=== PATIENT | male | born 1980 | race Caucasian/White ===

== ENCOUNTER 2018-09-27 14:00 | Emergency (ER) | payer BC ==
[2018-09-27 14:05] VITALS: PULSE 102; TEMP 98.2; BMI 29.4
--- NOTE | 2018-09-27 14:21 | PDOC ---
Attending Attestation - Resident Resident Name: AniyahEileen - ED Attending Attestation I have performed the following: I have examined & evaluated the patient, The case was reviewed & discussed with the resident, I agree w/resident's findings & plan, Exceptions are as noted - HPI HPI: 09/27/18 14:30 38y M no pmhx presents with a facial infection. Pt states that approx 2 weeks, he started to have a pimple on his L cheek. He squeezed it and dug out some ingrown hairs. A few days later, it became more red. he went to urgent care and was started on doxycycline for a possibel cellulitis. pt denies any fever/chills , trouble chewing, mouth pain, neck pain. he went to a DIABETES EDUCATOR who referred him to the ER for further evaluation. pt states that he has been putting a Kiehl's topical facial cleanser. No prior history of infections. no bad habits. doesnt use steroids. On exam: GENERAL: eris cute distress Throat: oral mucosa moist, good dentition, no signs of dental or intraoral abcess, posterior pharynx patent and symmetric, tongue normal HEAD/FACE: mild erythema on left cheek with umbilication without active discharge, no significant warmth, induration, mildly ttp, no streaking. no redeness/swelling/tenderness on neck or mastoid process CARD: rrr, no mrg PULM: CTA b/l suspect very mild cellulitis vs inflammation - will obtain blood work - no systemic sypmtoms will ck basic labs, if normal will give alterative abx suspect his routine of using the facial cleanser and shavnig may be delaying healing process - will have him stop using any cleansers beside water and have him minimize shaving to reduce irritation to the healing area - Physicial Exam PE: 10/03/18 00:00 see above - Medical Decision Making 10/03/18 00:00 see above
[2018-09-27 15:00] LABS: EOS % 2.6 % (0-4.5); HEMATOCRIT 54.9 % (35.4-49); HEMOGLOBIN 17.8 GM/dl (11.7-16.9); LYMPH % 35.3 % (8-40); MCH 31.2 pg (25.7-33.7); MCHC 32.4 g/dl (32.0-35.9); MEAN CELL VOLUME 96.2 fl (80-96); MEAN PLT VOLUME 9.5 fl (7.5-11.1); MONO % 10.1 % (3.8-10.2); PLATELET COUNT 169 K/MM3 (134-434); RDW 11.9 % (11.9-15.9)
[2018-09-27 15:08] LABS: ALBUMIN 4.5 g/dl (3.4-5.0); ALK PHOS 52 U/L (45-117); ANION GAP 8 MMOL/L (8-16); BLOOD UREA NITROGEN 12 mg/dl (7-18); CALCIUM 9.7 mg/dl (8.5-10); CHLORIDE 97 mmol/L (98-107); CO2 31 mmol/L (21-32); GLUCOSE,RANDOM 81 mg/dl (74-106); POTASSIUM 4.7 mmol/L (3.5-5.1); SGOT/AST 94 U/L (15-37); SGPT/ALT 47 U/L (13-61); SODIUM 136 mmol/L (136-145)
--- NOTE | 2018-09-27 15:14 | PDOC ---
History of Present Illness - General Chief Complaint: Redness To Affected Area Stated Complaint: REDNESS, SWELLING TO LEFT JAW Time Seen by Provider: 09/27/18 14:18 History Source: Patient Exam Limitations: No Limitations - History of Present Illness Initial Comments: 09/27/18 15:09 Pt is a 38yo M with no significant PMH presenting to ED for L sided facial cellulitis. Pt states that around 17 days ago he noticed the L side of his face breaking out, turning red and getting worse. He went to urgent care 10 days ago and was given doxycycline and dermatology f/u. Pt says that he finished the course yesterday and went to a radioactivity technician today ([employer]) who said to come to the emergency room. Pt states that this morning he pulled out "40-50 hairs" which left an open pore. Other than feeling weak, pt denies fevers, chills, oral lesions, drainage, headache, congestion, throat pain, abdominal pain, n/v/ d. Pt applies "all natural" facial cleanser and lotion to the skin and continues to shave. PMD: none PSH: none Meds: doxycycline Allergies: PCN Social: occasional alcohol use Past History - Past Medical History Allergies/Adverse Reactions: Allergies Allergy/AdvReac Type Severity Reaction Status Date / Time Penicillins Allergy Mild Verified 09/27/18 14:00 Home Medications: Ambulatory Orders Alprazolam [Xanax] 2 mg PO HS 09/27/18 Clindamycin Topical Solution [Cleocin 1% Topical Solution -] 5 ml TP DAILY #1 bottle 09/27/18 Finasteride 1 mg PO DAILY 09/27/18 COPD: No Psychiatric Problems: Yes (INSOMNIA) - Surgical History Abdominal Surgery: Yes (SPLEEN REPAIR) - Suicide/Smoking/Psychosocial Hx Smoking History: Current some day smoker Have you smoked in the past 12 months: Yes Number of Cigarettes Smoked Daily: 4 Information on smoking cessation initiated: Yes 'Breaking Loose' booklet given: 12/16/17 Hx Alcohol Use: (occasional) Drug/Substance Use Hx: No Substance Use Type: Alcohol Review of Systems - Review of Systems Constitutional: Yes: Weakness. No: Chills, Fever HEENTM: Yes: See HPI. No: Nose Pain, Throat Pain, Throat Swelling, Mouth Pain, Difficulty Swallowing Respiratory: No: Cough, Shortness of Breath Cardiac (ROS): No: Chest Pain ABD/GI: No: Symptoms Reported : No: Symptoms Reported Musculoskeletal: No: Symptoms Reported Integumentary: Yes: See HPI Neurological: No: Symptoms reported *Physical Exam - Vital Signs Last Vital Signs Temp Pulse Resp BP Pulse Ox 98.2 F 102 H 20 141/97 100 09/27/18 14:00 09/27/18 14:00 09/27/18 14:00 09/27/18 14:00 09/27/18 14:00 - Physical Exam General Appearance: Yes: Nourished, Appropriately Dressed. No: Apparent Distress HEENT: positive: EOMI, CARIN, Pharynx Normal, Other (normal oral mucosa). negative: Pharyngeal Erythema Neck: positive: Trachea midline, Supple. negative: Lymphadenopathy (R), Lymphadenopathy (L) Respiratory/Chest: positive: Lungs Clear, Normal Breath Sounds Cardiovascular: positive: Regular Rhythm, Regular Rate, S1, S2. negative: Edema , Murmur Vascular Pulses: Carotid (R): 2+, Carotid (L): 2+ Gastrointestinal/Abdominal: positive: Normal Bowel Sounds, Soft. negative: Tender Musculoskeletal: negative: CVA Tenderness Extremity: positive: Normal Capillary Refill. negative: Pedal Edema, Swelling Integumentary: positive: Normal Color, Dry, Warm, Other (L side of face slightly erythematous with open pores, no fluctuance or induration, not warm) Neurologic: positive: braille typist II-XII NML intact, Fully Oriented, Alert, Normal Mood/ Affect, Normal Response, Motor Strength 5/5 ED Treatment Course - LABORATORY CBC & Chemistry Diagram: 09/27/18 14:30 09/27/18 14:30 - ADDITIONAL ORDERS Additional order review: 09/27/18 14:30 RBC 5.70 H MCV 96.2 H MCHC 32.4 RDW 11.9 MPV 9.5 Neutrophils % 51.0 Lymphocytes % 35.3 Monocytes % 10.1 Eosinophils % 2.6 Basophils % 1.0 Medical Decision Making - Medical Decision Making 09/27/18 15:12 Pt is a 38yo M with no significant PMH presenting to ED for L sided facial cellulitis. Pt states that around 17 days ago he noticed the L side of his face breaking out, turning red and getting worse. He went to urgent care 10 days ago and was given doxycycline and dermatology f/u. Pt says that he finished the course yesterday and went to a radioactivity technician today ([employer]) who said to come to the emergency room. Pt states that this morning he pulled out "40-50 hairs" which left an open pore. Other than feeling weak, pt denies fevers, chills, oral lesions, drainage, headache, congestion, throat pain, abdominal pain, n/v/ d. Pt applies "all natural" facial cleanser and lotion to the skin and continues to shave. Vitals: slight tachycadia PE: L sided facial erythema, no masses, no fluctuance, no indurtion, not ttp. ddx includes but not limited to cellulitis, erysepelas, ingrown hairs, acne cellulitis looks like it is clearing up. Pt continues to apply topical creams/ cleansers and shaves. May be preventing proper healing. -labs to assess white count labs wnl. pt does not need further abx treatment however will prescribe clindamycin topical solution. Pt given return precautions and referral to derm. stable for dc home *DC/Admit/Observation/Transfer Diagnosis at time of Disposition: Skin infection - Discharge Dispostion Disposition: HOME Condition at time of disposition: Good Decision to Admit order: No - Prescriptions Prescriptions: Clindamycin Topical Solution [Cleocin 1% Topical Solution -] 5 ml TP DAILY #1 bottle - Referrals Referrals: Darlene Hernandez MD [Staff Physician] - - Patient Instructions Printed Discharge Instructions: DI for Cellulitis -- Adult Additional Instructions: You were seen in the emergency room today for cellulitis on the face. It looks like it is healing well. The blood work was all normal. Please only use soap and water on the face and try not to apply any lotion so that the skin can heal. You can continue to place a covering on top if you want to. I would also recommend not to shave until the skin is healed as well. Try not to pick at any scabs that form. I also recommend seeing a radioactivity technician as well. You can see Dr. Hernandez. Contact information is provided. A prescription for a topical antibiotic was sent to your pharmacy. Please take as directed. Come back to the emergency room if swelling gets worse, you start developing acne on top, you have fevers, you are unable to move your mouth, the infection spreads or if any new concerning symptom develops. Thank you - Post Discharge Activity
[2018-09-27 16:47] VITALS: BP 136/91
== END 2018-09-27 16:05 | disposition home or self-care (01) ==
LOC: FER 14:00
DX: L03.211 Cellulitis of face (principal)
CPT/HCPCS: 36415; 80053; 83605; 85025; 87040; 87186; 99284-25

== ENCOUNTER 2018-09-28 17:49 | Emergency (ER) | payer BC ==
[2018-09-28] MEDS ORDERED: SODIUM CHLORIDE 0.9% 500 ML INFUS.BAG IV ONE (17:54)
--- NOTE | 2018-09-28 17:55 | PDOC ---
History of Present Illness - General Chief Complaint: Revisit, Lab Variance Stated Complaint: REVISIT, REDNESS TO LEFT JAW, LAB VARIANCE Time Seen by Provider: 09/28/18 17:51 History Source: Patient Exam Limitations: No Limitations - History of Present Illness Initial Comments: 09/28/18 18:41 Linn is a 38yo M with no significant PMH presenting to ED for L sided facial cellulitis, now scarring and improved from yesterday, called back for abnormal microbio results +blood culture. He was seen yesterday in the ED, where one set of blood culture positive for gram positive cocci in pairs/chains. At that time he was rxd clinda ointment, which he has been applying. Pt states that around 3 weeks ago, he noticed the L side of his face breaking out in redness. He went to urgent care 10 days ago and was given doxycycline and subsequently eval by dermatology, who had referred him to the ED yesterday. He completed the full course of doxycycline x 10 days. Of note yesterday, Pt states that this morning he pulled out "40-50 hairs" from his left face/cheek which left an open pore. He admits to shaving his face and applying cream. Denies similar history of cellulitis/abscess. He also complains of generalized weakness and lethargy, pt denies fevers, chills, oral lesions, drainage, headache, congestion, throat pain, abdominal pain, n/v/d. no recent travel or hiking in the [place]. admits to healthy diet, uses protein powder for bulking x many years, no issues previously. denies etoh excessive drinking or tylenol use. PMD: none PSH: none Meds: clinda ointment Allergies: PCN Social: occasional alcohol use; no tobacco use. Review of systems Constitutional: no fevers or chills. +generalized weakness. HEENT: no headache or dizziness. No congestion. No visual/hearing disturbances. CVS: no cp or syncope. Resp: no sob. No cough. Gastrointestinal: no abdominal pain, nausea or vomiting. Genitourinary: no urinary sx, hematuria. MUSCULOSKELETAL: No joint pain and swelling. No neck or back pain. SKIN: no discharge, no rash. +healing wound to face. Hematologic: no easy bruising/bleeding. NEUROLOGIC: No headache, dizziness, LOC or altered mental status. No weakness, numbness or tingling. Allergic/Immunologic: no allergies All other systems reviewed and negative, or as documented in HPI. Physical exam: General: Well appearing, awake and alert, NAD. HEENT: NCAT, PERRL, EOMI, clear conjunctiva, anicteric, moist mucus membranes, clear oropharynx, no oral lesions.. Left jaw/lower face with healed scars and granulated tissue over the pore. +kaye, no purulence or erythema, or warmth. Neck: neck supple, FROM Resp: CTAB, normal and even respirations, no respiratory distress CVS: RRR, no murmurs, 2+ peripheral pulses throughout, no peripheral edema Abdomen: soft, NTND, no peritoneal signs. Back: nontender, normal inspection and ROM MSK: no edema, MODI x4, ROM intact. No clubbing or cyanosis. normal bulk and tone. Neuro: alert, no focal neuro deficits. CN II-XII grossly intact. Skin: warm and well perfused, cap refill <2 sec, normal color, no rash. No warmth or erythema or fluctuance/firmness to his left face, nontender no Jaundice. 09/28/18 18:47 09/28/18 19:51 Past History - Past Medical History Allergies/Adverse Reactions: Allergies Allergy/AdvReac Type Severity Reaction Status Date / Time Penicillins Allergy Mild Verified 09/28/18 17:50 Home Medications: Ambulatory Orders Alprazolam [Xanax] 2 mg PO HS 09/27/18 Clindamycin Topical Solution [Cleocin 1% Topical Solution -] 5 ml TP DAILY #1 bottle 09/27/18 Finasteride 1 mg PO DAILY 09/27/18 COPD: No Psychiatric Problems: Yes (INSOMNIA) - Surgical History Abdominal Surgery: Yes (SPLEEN REPAIR) - Suicide/Smoking/Psychosocial Hx Smoking History: Current some day smoker Have you smoked in the past 12 months: Yes Number of Cigarettes Smoked Daily: 4 'Breaking Loose' booklet given: 12/16/17 Hx Alcohol Use: (occasional) Drug/Substance Use Hx: No Substance Use Type: Alcohol ED Treatment Course - LABORATORY CBC & Chemistry Diagram: 09/28/18 18:20 09/28/18 18:20 Medical Decision Making - Medical Decision Making 09/28/18 18:48'' hpi as documented VS reviewed, wnl no fever, nontoxic appearing, no systemic sx, normal mentation, repeat labs. prior reviewed from yesterday, hemoconcentrated, pt admits to mild dehydration and generalized fatigue x several weeks ddx facial abscess, cellulitis, bacteremia, nonseptic appearing, no abscess palpated, no erythema/s/s drainage or severe infection does not appear to be osteomyelitis, no jaw pain, no neuro changes repeat labs_normal wbc ct, +hemoconcentration. given IVF hydration +transaminitis noted, higher than previous. he has noted to have EtOH abuse in the past, last used 1 month ago and aware of liver function tests. acute transaminitis noted, pt denies etoh use between yesterday to today, no tylenol use or medications or over the counter meds/changes. uses protein powder, but has been used x many years since teen years. repeat Blood culture x2 drawn. prior one with one set +blood culture with staph species, likely contamination. CXR to eval for pna. he does have RUQ pain/right lower chest pain. RUQ sono to eval for liver/biliary structural abnormalities/inflammation. tick panel/ parasite/babesia smear, lyme titer and hepatitis panel sent to elucidate infectious etiology. s/o to Dr Leonardo pending reeval and ultimate dispo 09/28/18 18:50 09/28/18 19:03 09/28/18 19:49 *DC/Admit/Observation/Transfer Diagnosis at time of Disposition: Malaise and fatigue, Transaminitis - Discharge Dispostion Disposition: HOME Condition at time of disposition: Stable - Referrals Schedule a call back: call back Referrals: [facility] at [place] [Provider Group] Andrew Jimenez MD [Staff Physician] - - Patient Instructions Printed Discharge Instructions: Liver Function Tests Additional Instructions: Continue face cream as prescribed. On Sunday follow-up in the clinic listed under referrals. He will receive a phone call or you can make a phone call to confirm the time the clinic will follow-up on the blood tests which were discussed that were sent here from the emergency department Return to the emergency department immediately for any fever chills shaking any severe worsening abdominal pain or for any concerns otherwise follow-up in the clinic on Sunday. - Post Discharge Activity
[2018-09-28 18:04] VITALS: BP 126/87; PULSE 97; TEMP 98; BMI 29.4
[2018-09-28 18:31] LABS: BASO % 1.4 % (0-2.0); EOS % 3.1 % (0-4.5); HEMATOCRIT 54.6 % (35.4-49); HEMOGLOBIN 18.2 GM/dl (11.7-16.9); MCH 31.9 pg (25.7-33.7); MCHC 33.3 g/dl (32.0-35.9); MEAN CELL VOLUME 95.5 fl (80-96); MEAN PLT VOLUME 9.2 fl (7.5-11.1); MONO % 8.5 % (3.8-10.2); PLATELET COUNT 166 K/MM3 (134-434); RBC 5.71 M/mm3 (4.00-5.60); RDW 11.8 % (11.9-15.9); WHITE BLOOD COUNT 8.2 K/mm3 (4.0-10.8)
[2018-09-28 18:47] LABS: ALBUMIN 4.3 g/dl (3.4-5.0); ALK PHOS 62 U/L (45-117); ANION GAP 4 MMOL/L (8-16); BILIRUBIN,TOTAL 1.3 mg/dl (0.2-1); BLOOD UREA NITROGEN 19 mg/dl (7-18); CALCIUM 9.6 mg/dl (8.5-10); CHLORIDE 100 mmol/L (98-107); CO2 30 mmol/L (21-32); GLUCOSE,RANDOM 78 mg/dl (74-106); POTASSIUM 4.4 mmol/L (3.5-5.1); SGOT/AST 208 U/L (15-37); SGPT/ALT 110 U/L (13-61); SODIUM 134 mmol/L (136-145); TOT PROT 7.1 g/dl (6.4-8.2)
[2018-09-28 20:16] LABS: INR 1.06 (0.82-1.09); PROTHROMBIN TIME (PATIENT) 11.9 SEC (10.2-13.0)
--- NOTE | 2018-09-28 21:06 | PDOC ---
*Physical Exam - Vital Signs Last Vital Signs Temp Pulse Resp BP Pulse Ox 98 F 97 H 18 126/87 99 09/28/18 17:50 09/28/18 17:50 09/28/18 17:50 09/28/18 17:50 09/28/18 17:50 <Farzaneh White - Last Filed: 09/28/18 21:06> - Vital Signs Last Vital Signs Temp Pulse Resp BP Pulse Ox 98 F 97 H 18 126/87 99 09/28/18 17:50 09/28/18 17:50 09/28/18 17:50 09/28/18 17:50 09/28/18 17:50 <Nicola Leonardo - Last Filed: 09/29/18 06:48> ED Treatment Course - LABORATORY CBC & Chemistry Diagram: 09/28/18 18:20 09/28/18 18:20 - ADDITIONAL ORDERS Additional order review: Laboratory Results 09/28/18 09/28/18 20:00 18:20 PT with INR 11.9 INR 1.06 Sodium 134 L Potassium 4.4 Chloride 100 Carbon Dioxide 30 Anion Gap 4 L BUN 19 H Creatinine 1.0 Creat Clearance w eGFR 84.08 Random Glucose 78 Calcium 9.6 Total Bilirubin 1.3 H AST 208 H ALT 110 H Alkaline Phosphatase 62 D Total Protein 7.1 Albumin 4.3 09/28/18 18:20 RBC 5.71 H MCV 95.5 MCHC 33.3 RDW 11.8 L MPV 9.2 Neutrophils % 65.0 D Lymphocytes % 22.0 D Monocytes % 8.5 Eosinophils % 3.1 Basophils % 1.4 - RADIOLOGY Radiology Studies Ordered: 09/28/18 21:08 Findings: The study was technically difficult as the patient had eaten approximately 30 minutes prior to the study. There is extensive bowel gas. The pancreas was poorly visualized due to overlying bowel gas. The common bile duct measures 0.4 cm in diameter. Chest X-Ray Result: CHF - Medications Given in the ED: ED Medications Discontinued Medications Generic Name Dose Route Start Last Admin Trade Name Freq PRN Reason Stop Dose Admin Sodium Chloride 1,000 ml 09/28/18 17:54 09/28/18 18:40 Normal Saline - IV 09/28/18 17:55 1,000 ml ONCE ONE Administration <Farzaneh White - Last Filed: 09/28/18 21:06> - LABORATORY CBC & Chemistry Diagram: 09/28/18 18:20 09/28/18 18:20 - ADDITIONAL ORDERS Additional order review: Laboratory Results 09/28/18 09/28/18 20:00 18:20 PT with INR 11.9 INR 1.06 Sodium 134 L Potassium 4.4 Chloride 100 Carbon Dioxide 30 Anion Gap 4 L BUN 19 H Creatinine 1.0 Creat Clearance w eGFR 84.08 Random Glucose 78 Calcium 9.6 Total Bilirubin 1.3 H AST 208 H ALT 110 H Alkaline Phosphatase 62 D Total Protein 7.1 Albumin 4.3 09/28/18 18:20 RBC 5.71 H MCV 95.5 MCHC 33.3 RDW 11.8 L MPV 9.2 Neutrophils % 65.0 D Lymphocytes % 22.0 D Monocytes % 8.5 Eosinophils % 3.1 Basophils % 1.4 - Medications Given in the ED: ED Medications Discontinued Medications Generic Name Dose Route Start Last Admin Trade Name Freq PRN Reason Stop Dose Admin Sodium Chloride 1,000 ml 09/28/18 17:54 09/28/18 18:40 Normal Saline - IV 09/28/18 17:55 1,000 ml ONCE ONE Administration <Nicola Leonardo - Last Filed: 09/29/18 06:48> Medical Decision Making - Medical Decision Making 09/28/18 21:04 Well-appearing no apparent distress callback to the ED for 1 out of 2 positive blood cultures with gram-positive cocci Patient was recently treated with doxycycline for facial infection and recently switched to clindamycin cream which has been improving his facial rash. Patient has no fever no elevated white blood cell count incidentally noted on his laboratory analysis from today's visit was a slight increase in his LFTs 100-200 Ultrasound limited secondary to patient eating just prior to ultrasound Given no fever no white count no significant abdominal pain on examination no indication at this time for admission. We have arranged for the patient to follow up with our clinic on Sunday Repeat blood cultures were sent the positive culture was most likely contaminant there has been no growth yet to date Also we have sent a hepatitis panel as well as parasite and tick panel Findings discussed at length with patient patient is well-appearing feels comfortable returning home he will return to the ED for any fever chills riders severe worsening symptoms or for any concerns otherwise she will follow-up with the clinic on Sunday Findings, the need for follow-up and strict return instructions discussed with patient. <Nicola Leonardo - Last Filed: 09/29/18 06:48> *DC/Admit/Observation/Transfer - Attestations Scribe Attestion: 09/28/18 21:09 Documentation prepared by Farzaneh White, acting as medical nurse for Nicola Leonardo MD, MD <Farzaneh White - Last Filed: 09/28/18 21:06> - Discharge Dispostion Decision to Admit order: No <Nicola Leonardo - Last Filed: 09/29/18 06:48> Diagnosis at time of Disposition: Malaise and fatigue, Transaminitis - Discharge Dispostion Disposition: HOME Condition at time of disposition: Stable - Referrals Schedule a call back: call back Referrals: Andrew Jimenez MD [Staff Physician] - [facility] [place] [Provider Group] - Patient Instructions Printed Discharge Instructions: Liver Function Tests Additional Instructions: Continue face cream as prescribed. On Sunday follow-up in the clinic listed under referrals. He will receive a phone call or you can make a phone call to confirm the time the clinic will follow-up on the blood tests which were discussed that were sent here from the emergency department Return to the emergency department immediately for any fever chills shaking any severe worsening abdominal pain or for any concerns otherwise follow-up in the clinic on Sunday.
[2018-09-30 14:10] LABS: HEP.C VIRUS AB <0.1 s/co ratio (0.0-0.9)
[2018-10-02 11:00] LABS: BABESIA MICROTI ANTIBODY IGG <1:10; BABESIA MICROTI ANTIBODY IGM <1:10
[2018-10-02 11:19] LABS: E. chaff IgG NEGATIVE
== END 2018-09-28 21:22 | disposition home or self-care (01) ==
LOC: FER 17:49
PROC: 3E0337Z Introduction of Electrolytic and Water Balance Substance into Peripheral Vein, Percutaneous Approach (ICD-10-PCS; principal; 2018-09-28)
DX: R74.0 Nonspecific elevation of levels of transaminase and lactic acid dehydrogenase [LDH] (principal); R53.81 Other malaise; R53.83 Other fatigue
CPT/HCPCS: 36415; 71046-TC-FY; 76705-TC; 80053; 80074; 82930; 85025; 85610; 86618; 86666; 86753; 87040; 87207; 99285-25